=== PATIENT | female | born 1990 | race African-American/Black ===

== ENCOUNTER 2018-01-17 14:40 | Emergency (ER) | payer SELFPAY ==
[~2018-01-17] VITALS: Ht 160 cm; Wt 99.8 kg
[2018-01-17 14:55] VITALS: BP 116/66
[2018-01-17] MEDS ORDERED: HYDROcodone-ACET 10/325MG TAB PO ONE (16:00)
== END 2018-01-17 16:13 | disposition home or self-care (01) ==
LOC: ER 14:40
DX: K08.89 Other specified disorders of teeth and supporting structures (principal); Z88.8 Allergy status to other drugs, medicaments and biological substances